=== PATIENT | male | born 1995 | race Caucasian/White ===

== ENCOUNTER 2021-11-02 12:42 | Emergency (ER) | payer BC, SELFPAY ==
[2021-11-02 12:53] VITALS: BP 124/74; PULSE 93; RESP 17; TEMP 36.3; O2SAT 99
--- NOTE | 2021-11-02 12:59 | ED.EXTPRO ---
HPI - Extremity Problem General Chief complaint: Extremity Injury, Lower Stated complaint: swollen lt knee Time Seen by Provider: 11/02/21 12:55 Source: patient, RN notes reviewed and old records reviewed Mode of arrival: ambulatory Limitations: no limitations History of Present Illness HPI Narrative: 26-year-old male presents to the [facility] with a swollen left knee. States that he called Dr. Solano's office was told to go to the [facility] to get the joint drained. Patient denies any new injury. Patient states he woke up this morning and his knee was swollen. Had something similar approximately a month ago and saw his primary care provider, Dr. Solano, who drained off fluid. States that he called the office today was told to go to the [facility] to have the fluid drained. No redness noted. Has good range of motion. No increased warmth. MD Complaint: joint swelling Related Data Allergies Allergy/AdvReac Type Severity Reaction Status Date / Time spinach Allergy Unknown Verified 11/02/21 13:06 Review of Systems Review of Systems: All systems reviewed & are unremarkable except as noted in HPI and below Constitutional: Constitutional: Reports no additional constitutional complaints, Denies chills and Denies fever(s) Eyes: Eyes: Reports no additional eye complaints ENT: Reports system reviewed and no additional complaints, except as documented Cardiovascular: Cardiovascular: Reports no additional cardiovascular complaints Respiratory: Respiratory: Reports no additional respiratory complaints Gastrointestinal: Gastrointestinal: Reports no additional gastrointestinal complaints Musculoskeletal: Musculoskeletal: Reports as per HPI, Denies deformity, Reports joint swelling (Left knee) and Denies numbness Integumentary/Breasts: Skin/Breast: Reports system reviewed and no additional complaints, except as docu, Denies erythema and Denies rash Neurologic: Reports system reviewed and no additional complaints, except as documented Psychiatric: Psychiatric: Reports no additional psychiatric complaints Allergic/Immunologic: Allergic/Immunologic: Reports no additional allergic/immunologic complaints [facility] Family History Family History Other Family history of alcoholism Family history of malignant neoplasm Family history of osteoarthritis Social History Social History Smoking status: Current every day smoker Tobacco type: cigarettes Smokeless tobacco user: chewing tobacco Second hand tobacco smoke exposure: No Alcohol intake: never Alcohol use details: very seldom(some holidays) Gender identity (if verbalized by the patient): Male Sexual Orientation (if Verbalized by the Patient): Straight or Heterosexual Spiritual care concerns: No Agree to blood products: Yes Comments At the time of my signature, I reviewed and agree with the nursing past medical, surgical, social, and family history. There is no relevant family history pertinent to the patient complaint. Exam Const: General: healthy appearing, no acute distress and alert Nutritional Appearance: well nourished Orientation/consciousness: patient oriented x3 Limitations: no limitations HENMT: Head: normal to inspection Ears: external ears normal Face and sinus: normal facial exam Eyes: Pupils: Equal, round and reactive pupils present Neck: Neck: normal visual inspection, no lymphadenopathy and no meningeal signs Chest: Chest palpation & inspection: normal inspection of the chest Resp: Effort & Inspection: normal respiratory effort and no use of accessory muscles Auscultation: clear to auscultation bilaterally, no crackles, no rales, no rhonchi and no wheezes Cardio: Rate: regular rate Rhythm: regular rhythm Skin: General skin exam: normal color Rashes: no rashes Wounds: no wounds Neuro: General: patient oriented x
== END 2021-11-02 13:04 | disposition home or self-care (01) ==
PROVIDERS: Emergency Provider Nurse Practitioner; PCP Family Medicine Adolescent Medicine
DX: M25.462 Effusion, left knee (principal); F17.210 Nicotine dependence, cigarettes, uncomplicated; F17.220 Nicotine dependence, chewing tobacco, uncomplicated
CPT/HCPCS: 99212; G0463

== ENCOUNTER 2022-01-27 13:52 | Emergency (ER) | payer OTHER, BC, SELFPAY ==
[2022-01-27 14:02] VITALS: BP 124/81; PULSE 96; RESP 18; TEMP 36.7; O2SAT 96
--- NOTE | 2022-01-27 14:10 | ED.GENADULT ---
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 PAtient states he was working under a car when he felt fluid coming out on his left side . He states he kept his eyes closed and mouth closed. He was afraid it was DEF fluid so he made himself vomiting, because he thought he may have swallowed some fluid. He states he thinks only a small amount got into his mouth. He states he has now been told it was only washer fluid. Patient denies sore throat, difficulty breathing, nausea or vomiting. He was sent to [facility] prior to coming to room. Related Data Allergies Allergy/AdvReac Type Severity Reaction Status Date / Time spinach Allergy Unknown Verified 01/27/22 14:09 Review of Systems Review of Systems: All systems reviewed & are unremarkable except as noted in HPI and below Constitutional: Constitutional: Denies chills, Denies fatigue and Denies fever(s) Eyes: Eyes: Denies change in vision ENT: Denies nasal congestion and Denies sore throat Cardiovascular: Cardiovascular: Denies chest pain and Denies rapid heart rate Respiratory: Respiratory: Denies chest congestion and Denies cough Gastrointestinal: Gastrointestinal: Denies abdominal pain, Denies bloating and Reports vomiting PMFSH Past Medical History Medical History History of Perthes disease Family History Family History Other Family history of alcoholism Family history of malignant neoplasm Family history of osteoarthritis Social History Social History Smoking status: Current every day smoker Tobacco type: cigarettes Smokeless tobacco user: chewing tobacco Second hand tobacco smoke exposure: No Alcohol intake: never Alcohol use details: very seldom(some holidays) Gender identity (if verbalized by the patient): Male Sexual Orientation (if Verbalized by the Patient): Straight or Heterosexual Spiritual care concerns: No Agree to blood products: Yes Exam Const: General: healthy appearing and no acute distress Nutritional Appearance: well nourished Orientation/consciousness: patient oriented x3 HENMT: Ears: external ears normal Face and sinus: sinuses nontender Mouth: Yes Normal oral and palatal mucosa present, Yes lip normal and Yes moist mucous membranes Eyes: Pupils: Equal, round and reactive pupils present EOM: EOMs intact bilaterally Chest: Chest palpation & inspection: normal inspection of the chest Resp: Effort & Inspection: normal respiratory effort Auscultation: clear to auscultation bilaterally and breath sounds present Cardio: Rate: regular rate Rhythm: regular rhythm Heart sounds: no murmurs GI: GI Palp: Yes Soft to palpation, No Tenderness to palpation present (GI) and No Guarding due to palpation present (GI) Auscultation: normal bowel sounds Skin: General skin exam: normal color Wounds: no wounds Other: grease rodríguez on his face Neuro: General: patient oriented x3, moves all extremities and CN's II-XI intact bilaterally Extrem: General: normal to inspection Psych: Mental Status: mental status grossly normal Course Reevaluation(s) Reevaluation #1: It has been determined patient was not exposed to dEF fluid. Nursing spoke with poison control and no additional testing or monitoring is needed. Date: 01/27/22 Time: 15:42 Vital Signs Vital signs: Vital Signs Temperature 98.1 F 01/27/22 14:02 Pulse Rate 96 01/27/22 14:02 Respiratory Rate 18 01/27/22 14:02 Blood Pressure 124/81 01/27/22 14:02 Pulse Oximetry 96 01/27/22 14:02 Oxygen Delivery
[2022-01-27 14:11] VITALS: RESP 18
[2022-01-27 14:15] VITALS: BP 124/81; PULSE 96; O2SAT 96
--- NOTE | 2022-01-27 14:38 | PC.NURSE ---
Poison control called, spoke with nurse Morrow, she said that EMS already called them and there is nothing to be done at this time and poison control will follow up with the pt..
== END 2022-01-27 16:08 | disposition home or self-care (01) ==
PROVIDERS: Emergency Provider General Practice; PCP Family Medicine Adolescent Medicine
DX: Z77.098 Contact with and (suspected) exposure to other hazardous, chiefly nonmedicinal, chemicals (principal); F17.210 Nicotine dependence, cigarettes, uncomplicated; F17.220 Nicotine dependence, chewing tobacco, uncomplicated
CPT/HCPCS: 99281

== ENCOUNTER 2022-09-06 12:53 | Emergency (ER) | payer BC, SELFPAY ==
--- NOTE | ~2022-09-06 | XR_ITS ---
EXAMINATION: XR abdomen/kub 1V DATE: 09/06/2022 15:09 INDICATION: Left kidney stone. TECHNIQUE: A supine view of the abdomen on 2 radiographs was obtained. COMPARISON: CT abdomen pelvis 09/06/2022 FINDINGS: There are no dilated loops of bowel. There is contrast in the renal collecting system. Ther e is mild left hydronephrosis and hydroureter. IMPRESSION: 1. Mild left hydronephrosis and hydroureter. Reviewed, dictated and finalized at location A. HOUSE ORDER PULLER
--- NOTE | ~2022-09-06 | CT_ITS ---
CT Abdomen and Pelvis with contrast. History: Abdominal pain, leukocytosis. Spiral CT of the abdomen and pelvis was performed after the administration of intravenous contrast. 1 00 cc of Omnipaque 350 was administered intravenously without complication. Dose reduction technique was used on this scan by utilizing automated exposure control and iterative reconstruction technique. The dose-length product (DLP) was 485.11 mGy-cm. Findings: Scans through the lung bases demonstrate 6 mm pleural-based nodule at the left lung base. There is a 4.5 mm distal left ureteral stone, with mild left hydroureteronephrosis. There is minimall y delayed left nephrogram as compared to the right side. Additional punctate nonobstructing left arianna l stone seen. The liver, spleen, pancreas, gallbladder, adrenals and right kidney are within normal limits. No adria dence of aortic aneurysm. No lymphadenopathy is seen. There is no evidence of bowel obstruction. There is no evidence to suggest acute appendicitis or dive rticulitis. Images through the pelvis were performed. Urinary bladder unremarkable. Prostate gland and seminal ve sicles are unremarkable. No ascites is seen. Impression: 4.5 mm distal left ureteral stone with mild left hydroureteronephrosis. Additional punctate nonobstructing left lower pole renal stone. 6 mm left basilar pulmonary nodule. According to Fleischner Society criteria, for a low-risk patient, follow-up CT scan in 6-12 months recommended, then consider additional 18-[address] scan. For a hi gh-risk patient, follow-up CT scans at 6-12 months, and at 18-24 months, are recommended. Reviewed, dictated and finalized at location . ITIZER Impression: 4.5 mm distal left ureteral stone with mild left hydroureteronephrosis. Additional punctate nonobstructing left lower pole renal stone. 6 mm left basilar pulmonary nodule. According to Fleischner Society criteria, f or a low-risk patient, follow-up CT scan in 6-12 months recommended, then consi carli additional 18-[address] scan. For a high-risk patient, follow-up CT scans at 6-12 months, and at 18-24 months, are recommended.
[2022-09-06 12:55] VITALS: BP 134/79; PULSE 116; RESP 16; TEMP 36.3; O2SAT 98
--- NOTE | 2022-09-06 13:16 | ED.GENADULT ---
HPI - General Adult General Chief complaint: Urogenital-Male Stated complaint: kidney stone Time Seen by Provider: 09/06/22 12:59 History of Present Illness HPI narrative: 27-year-old male here for evaluation of left flank pain over the past day. Patient states the pain is relatively constant in nature and severe. He does note some discomfort with urination and is being treated for prostatitis by his PCP with ciprofloxacin, he notes that he just took the first pill today. Reports some nausea today but no vomiting. He denies any fevers, chills, blood in his urine. Related Data Allergies Allergy/AdvReac Type Severity Reaction Status Date / Time spinach Allergy Difficulty Verified 09/06/22 13:08 Breathing Review of Systems Review of Systems: Gen: Denies fevers or chills Eyes: Denies eye pain or visual change ENT: Denies congestion Respiratory: Denies shortness of breath or cough CV: Denies chest pain or palpitations GI: Denies abdominal pain nausea, emesis or diarrhea : Reports dysuria. Denies urgency, frequency or hematuria Musculoskeletal: Reports left flank pain. Denies back pain or muscle pain Neuro: Denies numbness, tingling, weakness or focal weakness Skin: Denies rash Except as documented, all other systems reviewed and negative [facility] Past Medical History Medical History History of Perthes disease Family History Family History (Updated 03/27/22 @ 09:25 by Murphy Fernando MA) Grandparent Acute myocardial infarction Diabetes mellitus Family history of alcoholism Family history of osteoarthritis Hypertension Mother Breast cancer Family history of osteoarthritis Hypertension Father Carcinoma of colon Colon polyp Family history of alcoholism Family history of malignant neoplasm Family history of osteoarthritis Hypertension Grandparent Diabetes mellitus Family history of osteoarthritis Hypertension Social History Social History (Updated 03/27/22 @ 09:26 by Murphy Fernando MA) Smoking status: Current every day smoker Tobacco type: cigarettes Second hand tobacco smoke exposure: No Alcohol intake: never Alcohol use details: very seldom(some holidays) Substance use: never Substance use type: does not use Living arrangements: with family Occupation/Education: occupation Gender identity (if verbalized by the patient): Male Sexual Orientation (if Verbalized by the Patient): Straight or Heterosexual Spiritual care concerns: No Agree to blood products: Yes Exam Narrative: APPEARANCE: Well appearing, no pain in distress, well-nourished. Head: Normocephalic and atraumatic. EYES: PERRLA/EOMI, conjunctivae clear NOSE: No nasal drainage EARS: External ear normal in appearance THROAT: Oropharynx is clear. Mucous membranes are moist. NECK: Supple. No adenopathy, no masses. RESPIRATORY: Airway patent, respirations nonlabored. Clear to auscultation bilaterally, no rales, rhonchi, wheezing. CARDIOVASCULAR: Regular rate and rhythm without murmurs, rubs, or gallops. ABDOMINAL: Normoactive bowel sounds. Soft, nontender, nondistended. No rebound tenderness or guarding. MUSCULOSKELETAL: Extremities are warm and well-perfused. Moves all extremities well. No edema. NEURO: Normal speech. No focal neurologic deficits. SKIN: Skin is warm and dry. No rashes. PSYCHIATRIC: Normal affect/mood. Course Vital Signs Vital signs: Vital Signs Temperature 97.4 F L 09/06/22 12:55 Pulse Rate 116 H 09/06/22 12:55 Respiratory Rate 16 09/06/22 12:55 Blood Pressure 134/79 09/06/22 12:55 Pulse Oximetry 98 09/06/22 12:55 Temperature 97.4 F L 09/06/22 12:55 Pulse Rate 87 09/06/22 16:09 Respiratory Rate 18 09/06/22 16:09 Blood Pressure 137/78 09/06/22 16:09 Pulse Oximetry 99 09/06/22 16:09 Medical Decision Making [facility] Narrative Medical decision making narrative: 27 year old
[2022-09-06 13:19] LABS: Basophils Percent Auto 0.2 % (0.2-1.2); Eosinophils Percent Auto 0.1 % (0-4.4); Hematocrit 44.9 % (42.0-52.0); Hemoglobin 15.3 g/dL (14.0-18.0); Immature Granulocyte Absolute 0.08 K/mm3 (0.00-0.031); Immature Granulocyte Percent A 0.5 % (0-0.5); Lymphocytes Percent Auto 7.1 % (18.3-44.2); Mean Corpuscular HGB Conc 34.1 g/dl (32-36); Mean Corpuscular Hemoglobin 30.7 pg (26-34); Mean Corpuscular Volume 90.2 fl (80-100); Mean Platelet Volume 8.8 fl (7.4-10.4); Monocytes Absolute Auto 1.4 K/mm3 (0.1-0.6); Monocytes Percent Auto 8.1 % (2.6-8.5); Neutrophils Absolute Auto 14.3 K/mm3 (1.3-6.7); Platelet Count Result 257 k/mm3 (150-375); Red Blood Count 4.98 M/mm3 (4.6-6.20); Red Cell Distribution Width 12.9 % (11.5-14.5)
[2022-09-06 13:22] LABS: Appearance Urine Clear (Clear); Bilirubin Urine Negative (Negative); Blood Urine 1+ (Negative); Color Urine Yellow (Yellow); Glucose Urine UA Negative (Negative); Ketones Urine Negative (Negative); Leukocyte Esterase Ur Negative LEU/UL (Negative); Nitrate Urine Negative (Negative); Protein Urine Trace mg/dL (Negative); Specific Grav Ur >= 1.030 (1.001-1.035); Urobilinogen Urine 0.2 mg/dL (<2.0); pH Urine 5.5 (5.0-9.0)
[2022-09-06] MEDS: MORPHINE SULFATE (*CRX) 4 MG/ML INJ IV PUSH (13:25)
[2022-09-06 13:33] LABS: Alanine Aminotransferase 23 U/L (6-50); Albumin Level 4.7 g/dL (3.5-5.1); Alkaline Phosphatase 79 U/L (38-126); Anion Gap 9 mmol/L (8-16); Aspartate Amino Transferase 27 U/L (17-59); Bilirubin,Total 0.4 mg/dL (0.2-1.3); Blood Urea Nitrogen 13 mg/dL (9-20); Carbon Dioxide 28 mmol/L (22-30); Chloride 104 mmol/L (98-107); Estimated CRCL calculation 73 ml/min; Estimated Glomerular Filt Rate 60; Glucose 95 mg/dL (65-110); Potassium 3.7 mmol/L (3.4-5.0); Sodium 141 mmol/L (137-145)
[2022-09-06 13:37] LABS: Calcium Oxalate Crystals Urine Present /hpf; Mucus Urine Rare /lpf; WBC Urine 0-3 /hpf
[2022-09-06 13:40] LABS: Add Urine Microscopic? YES
[2022-09-06] MEDS: SODIUM CHLORIDE 0.9% IV 1,000 ML 999 ML IV CONT (14:06)
[2022-09-06] MEDS: KETOROLAC 15 MG/ML VIAL (*BKC) IV PUSH (15:36)
[2022-09-06 16:09] VITALS: BP 137/78; PULSE 87; RESP 18; O2SAT 99
== END 2022-09-06 16:11 | disposition home or self-care (01) ==
PROVIDERS: Emergency Provider Physician Assistant; PCP Family Medicine Adolescent Medicine
DX: N20.0 Calculus of kidney (principal); F17.200 Nicotine dependence, unspecified, uncomplicated
CPT/HCPCS: 36415; 74018; 74177; 80053; 81001; 85025; 96361; 96374; 96375; 99284; J1885; J2270; J7030; Q9967

== ENCOUNTER 2022-09-26 10:13 | Outpatient (CLI) | payer BC, SELFPAY ==
--- NOTE | ~2022-09-26 | XR_ITS ---
EXAMINATION: XR abdomen/kub 1V INDICATION: Left ureteral stone TECHNIQUE: Supine views of the abdomen were obtained on 2 radiographs. COMPARISON: 09/06/2022 FINDINGS: The previously described left distal ureteral stone is not seen. There is a phlebolith of r ight pelvis. The bowel gas pattern is normal. A moderate volume of colonic stool is present. IMPRESSION: 1. No urolithiasis identified. Reviewed, dictated and finalized at location L. D MAKER
== END 2022-09-26 10:14 | disposition home or self-care (01) ==
PROVIDERS: PCP Family Medicine Adolescent Medicine; Visit Provider Urology
DX: N20.1 Calculus of ureter (principal)
CPT/HCPCS: 74018

== ENCOUNTER 2024-03-20 10:29 | Emergency (ER) | payer OTHER, BC, SELFPAY ==
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
[2024-03-20 10:40] VITALS: BP 135/85; PULSE 68; RESP 16; TEMP 36.7; O2SAT 98
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
== END 2024-03-20 11:41 | disposition home or self-care (01) ==
PROVIDERS: Emergency Provider Emergency Medicine; PCP Family Medicine Adolescent Medicine
DX: S63.502A Unspecified sprain of left wrist, initial encounter (principal); F17.210 Nicotine dependence, cigarettes, uncomplicated; V47.5XXA Car driver injured in collision with fixed or stationary object in traffic accident, initial encounter
CPT/HCPCS: 73110; 99283

== ENCOUNTER 2024-07-17 12:18 | Emergency (ER) | payer OTHER, SELFPAY ==
--- NOTE | ~2024-07-17 | XR_ITS ---
EXAM: XR shoulder RT min 2V DATE: 07/17/2024 14:37 HISTORY: Right shoulder pain . COMPARISON: None available. FINDINGS: Normal mineralization. No fracture or dislocation. No lytic or blastic lesion. Joint space s are maintained. No erosion or periosteal change. Linear radiopaque foreign body measuring 5 mm over lying the anterior soft tissues, probably over the proximal biceps. IMPRESSION: No acute osseous finding in the right shoulder. 5 mm radiopaque soft tissue foreign body, appears to project over the proximal biceps. Reviewed, dictated and finalized at location K. F TRAINER
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
--- NOTE | ~2024-07-17 | XR_ITS ---
EXAMINATION: XR chest 2V Exam Date/Time: 07/17/2024 14:25 SOUP PERSON HISTORY: Chest pain Comparison: None. RESULT: Lines, tubes, and devices: None. Lungs and pleura: Ill-defined segmental airspace opacities in the right lower lobe. Cardiomediastinal silhouette: Stable. Other: No acute osseous or upper abdominal finding. IMPRESSION: Ill-defined, subsegmental right lower lobe atelectasis/consolidation. Reviewed, dictated and finalized at location K. PERSON
--- NOTE | ~2024-07-17 | XR_ITS ---
EXAM: XR pelvis 1-2V DATE: 07/17/2024 14:37 HISTORY: Left hip pain . COMPARISON: None available. FINDINGS: Normal mineralization. Chronic deformity of the left femoral head and neck. No acute fract ure or dislocation. No lytic or blastic lesion. Joint spaces are maintained. No erosion or periosteal change. Soft tissues within normal limits. IMPRESSION: No acute osseous finding in the pelvis. Reviewed, dictated and finalized at location K. 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
--- NOTE | ~2024-07-17 | XR_ITS ---
EXAM: XR thoracic spine 2V DATE: 07/17/2024 14:37 HISTORY: Mid back pain . COMPARISON: None available. FINDINGS: Vertebral body alignment intact. Vertebral body heights preserved. No disc space narrowing . No traumatic malalignment or fracture. Visualized lung parenchyma is clear. IMPRESSION: No acute fracture or traumatic malalignment detected in the thoracic spine. Reviewed, dictated and finalized at location K. RAL OFFICE ASSOCIATE IMPRESSION: No acute fracture or traumatic malalignment detected in the thoraci c spine.
[2024-07-17 12:23] VITALS: BP 137/89; PULSE 109; RESP 12; TEMP 36.6; O2SAT 100
--- NOTE | 2024-07-17 13:55 | ECG_ITS ---
Test Date: 2024-07-17 14:15:43 Measurements Intervals [place] Rate: 86 P: 61 VA: 147 QRS: 97 QRSD: 96 T: 14 QT: 349 QTc: 419 Interpretive Statements SINUS RHYTHM RIGHT AXIS DEVIATION MINIMAL Q WAVES- INFERIOR LEADS BORDERLINE ECG No previous ECG available for comparison Electronically Signed On 07-17-2024 16:47:37 SENIOR ACCOUNTANT by Ez Caldwell D.O.
[2024-07-17] MEDS: oxyCODONE/ACETAMINOPHEN (*CRX) 5-325 MG TABLET 1 TABLET PO (14:11)
[2024-07-17 14:30] VITALS: BP 115/68; PULSE 74; RESP 16; O2SAT 95
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
[2024-07-17 14:41] VITALS: TEMP 36.6
[2024-07-17] MEDS: LIDOCAINE 5% PATCH 2 PATCH TRANSDERM (14:53)
[2024-07-17 15:30] VITALS: BP 109/77; PULSE 73; RESP 16; O2SAT 98
[2024-07-17 15:41] LABS: Anion Gap 7 mmol/L (4-12); Blood Urea Nitrogen 12 mg/dL (9-20); Calcium 9.2 mg/dL (8.4-10.2); Carbon Dioxide 27 mmol/L (22-30); Chloride 104 mmol/L (98-107); Estimated CRCL calculation 121 ml/min; Estimated Glomerular Filt Rate > 60; Glucose 85 mg/dL (65-110); Potassium 4.1 mmol/L (3.4-5.0); Sodium 138 mmol/L (137-145)
[2024-07-17 16:30] VITALS: BP 115/66; PULSE 70; RESP 16; O2SAT 98
[2024-07-17 17:53] VITALS: BP 114/66; PULSE 69; RESP 19; O2SAT 100
== END 2024-07-17 17:55 | disposition home or self-care (01) ==
PROVIDERS: Emergency Provider Preventive Medicine Aerospace Medicine; PCP Family Medicine Adolescent Medicine
DX: S79.912A Unspecified injury of left hip, initial encounter (principal); S49.91XA Unspecified injury of right shoulder and upper arm, initial encounter; R07.89 Other chest pain; F17.210 Nicotine dependence, cigarettes, uncomplicated; V43.52XA Car driver injured in collision with other type car in traffic accident, initial encounter
CPT/HCPCS: 36415; 71046; 71260; 72070; 72170; 73030; 74177; 80048; 93005; 99284; A9270; Q9967